=== PATIENT | male | born 1980 | race Caucasian/White ===

== ENCOUNTER 2023-03-03 16:02 | Emergency (ER) | payer SELFPAY ==
[~2023-03-03] VITALS: Ht 188 cm; Wt 113.6 kg
[~2023-03-03 16:02] MED LIST: PEN-VEE K500 MG PO; PERCOCET 325 MG1 TA2 PO
[2023-03-03] MEDS ORDERED: XANAX 1MG1 MG PO (16:23)
[2023-03-03 16:50] LABS: BASO % 0.9 % (0.0-2.0); EOS # 0.1 K/mm3 (0.0-0.7); EOS % 3.6 % (0.0-4.0); GRAN # 1.7 K/mm3 (1.4-6.5); GRAN % 50.7 % (42.2-75.2); HEMOGLOBIN 12.3 g/dl (13.5-18.0); LYMPH # 1.3 K/mm3 (1.2-3.4); LYMPH % 37.9 % (20.0-51.0); MEAN CELL VOLUME 96 fl (80.0-100.0); MEAN CORPUSCULAR HEMOGLOBIN 34 pg (27-31); MEAN CORPUSCULAR HGB CONC 35 g/dl (33.0-37.0); MEAN PLATELET VOLUME 12.5 fl (7.4-10.4); MONO # 0.2 K/mm3 (0.1-0.6); MONO % 6.6 % (1.7-9.3); RED BLOOD COUNT 3.64 M/mm3 (4.20-5.60); REDCELL DISTRIBUTION WIDTH-CV 15.5 % (11.5-14.5)
[2023-03-03 17:25] LABS: HEMATOCRIT 35.1 % (42.0-52.0)
[2023-03-03 17:26] LABS: PLATELET COUNT 35 K/mm3 (130-400)
[2023-03-03 18:06] LABS: ALBUMIN 2.3 gm/dL (3.5-5.0); BILIRUBIN,TOTAL 6.3 mg/dL (0.2-1.2); CALCIUM 7.9 mg/dL (8.4-10.2); CREATININE, serum 0.69 mg/dL (0.72-1.25); POTASSIUM 3.8 mmol/L (3.5-4.5); TOTAL PROTEIN 7.5 gm/dL (6.2-8.1)
[2023-03-03] MEDS ORDERED: LIBRIUM 25M25 MG/CAP PO (18:48)
[2023-03-03 18:49] LABS: INR 2.1 (0.8-3.0); PROTHROMBIN TIME 24.5 SECONDS (9.7-12.8)
[2023-03-03] MEDS ORDERED: CEPHALEXIN500 M1 PO (18:49)
[2023-03-03 19:05] VITALS: BP 141/91; PULSE 82; TEMP 98.3
== END 2023-03-03 19:12 | disposition home or self-care (01) ==
LOC: COL.ER 16:02
PROVIDERS: Emergency Medicine; Physician Assistant
DX: L03.116 Cellulitis of left lower limb (principal); K70.10 Alcoholic hepatitis without ascites; F10.10 Alcohol abuse, uncomplicated; D69.6 Thrombocytopenia, unspecified; R60.0 Localized edema; F17.200 Nicotine dependence, unspecified, uncomplicated; Z28.310 Unvaccinated for COVID-19
CPT/HCPCS: J7030